=== PATIENT | female | born 1950 | race Caucasian/White ===

== ENCOUNTER 2017-06-04 13:13 | Emergency (ER) | payer OTHER ==
[2017-06-04 13:19] VITALS: BP 153/92; PULSE 85; TEMP 98.8; BMI 20.2
--- NOTE | 2017-06-04 14:53 | PDOC ---
History of Present Illness - General Chief Complaint: Injury Stated Complaint: FALL/ RT ANKLE PAIN Time Seen by Provider: 06/04/17 13:59 History Source: Patient Exam Limitations: No Limitations - History of Present Illness Initial Comments: 06/04/17 14:47 This is a 66yo woman with PMH hypothyroidism who presents today with right foot and ankle pain s/p slipp on stairs. She states she was walking down a flight of stairs when she missed the last 2 steps landing on the floor and sustaining a rolled ankle. She denies head trauma, LOC, fevers, chills, SOB, chest pain, abdominal pain, nausea or vomiting. Occurred: reports: just prior to arrival Severity: Yes: mild Past History - Past Medical History Allergies/Adverse Reactions: Allergies Allergy/AdvReac Type Severity Reaction Status Date / Time Penicillins Allergy Verified 06/04/17 13:19 Home Medications: Ambulatory Orders NK [No Known Home Medication] 06/04/17 COPD: No Other medical history: OSTEOPEROSIS - Suicide/Smoking/Psychosocial Hx Smoking History: Never smoked Information on smoking cessation initiated: No Hx Alcohol Use: No Drug/Substance Use Hx: No Review of Systems - Review of Systems Able to Perform ROS?: Yes Is the patient limited Occitan proficient: No Constitutional: No: Symptoms Reported HEENTM: No: Symptoms Reported Respiratory: No: Symptoms reported Cardiac (ROS): No: Symptoms Reported ABD/GI: No: Symptoms Reported : No: Symptoms Reported Musculoskeletal: Yes: See HPI Integumentary: No: Symptoms Reported Neurological: No: Symptoms reported *Physical Exam - Vital Signs Last Vital Signs Temp Pulse Resp BP Pulse Ox 98.8 F 85 16 153/92 98 06/04/17 13:17 06/04/17 13:17 06/04/17 13:17 06/04/17 13:17 06/04/17 13:17 - Physical Exam General Appearance: Yes: Appropriately Dressed. No: Apparent Distress HEENT: positive: Normal ENT Inspection Neck: positive: Trachea midline Respiratory/Chest: positive: Lungs Clear. negative: Respiratory Distress Cardiovascular: positive: Regular Rhythm, Regular Rate Vascular Pulses: Dorsalis-Pedis (R): 2+, Doralis-Pedis (L): 2+ Gastrointestinal/Abdominal: positive: Normal Bowel Sounds, Soft. negative: Tender Musculoskeletal: positive: Normal Inspection Extremity: positive: Other (hematoma noted to lateral dorsum of right foot.) Integumentary: positive: Normal Color Neurologic: positive: verification specialist II-XII NML intact, Fully Oriented, Alert Medical Decision Making - Medical Decision Making 06/04/17 14:50 This is a 66yo woman with PMH hypothyroidism who presents today with right foot and ankle pain s/p slipp on stairs. She states she was walking down a flight of stairs when she missed the last 2 steps landing on the floor and sustaining a rolled ankle. She denies head trauma, LOC, fevers, chills, SOB, chest pain, abdominal pain, nausea or vomiting. Swelling present to lateral dorsum of right foot. No bony tenderness to Navicular, base of 5th metatarsal or malleolus. Patient is able to bear weight. Diagnosis- ankle sprain I will get an xray of right foot and ankle. Patient does not want pain medication at this time. 06/04/17 14:57 Right ankle and right foot x-ray. INDICATION: Injury. TECHNIQUE: AP, lateral and oblique views of the right ankle and right foot. COMPARISON: None. FINDINGS : There is no evidence of acute fracture or dislocation in the right ankle or right foot. Ankle mortise is symmetric. Talar dome is grossly intact. Alignment is satisfactory. There are postsurgical changes with screw in the right first metatarsal head. The second proximal phalanx is short, possibly postsurgical change. There are prominent soft tissues overlying the lateral malleolus, most likely attributed to swelling/edema. Osseous mineralization is within normal. IMPRESSION: No evidence of acute fracture or dislocation in the right ankle or right foot. Prominent soft tissue swelling/edema overlying the lateral malleolus. Reported By: Sumi Guadalupe DO 06/04/17 1421 *DC/Admit/Observation/Transfer Diagnosis at time of Disposition: Ankle injury Qualifiers: Encounter type: initial encounter Laterality: right Qualified Code(s): S99.911A - Unspecified injury of right ankle, initial encounter - Discharge Dispostion Disposition: HOME Condition at time of disposition: Stable Admit: No - Referrals Referrals: Matt Trevino MD [Staff Physician] - - Patient Instructions Additional Instructions: Keep foot elevated to the level of the heart. Apply ice for 20 minutes then remove ice for at least 20 minutes before reapplying ice. Use JULIANO wrap to ankle to control pain and swelling. Call Dr. Trevino if symptoms do not resolve within 1 week. Take Motrin for pain. Follow poising inspector's instructions for dosage. Return to ER for numbness or tingling to ankle or foot, discoloration of toes, or any other concerns. - Post Discharge Activity
== END 2017-06-04 15:03 | disposition home or self-care (01) ==
LOC: JERFT 13:13
DX: S99.911A Unspecified injury of right ankle, initial encounter (principal); W10.9XXA Fall (on) (from) unspecified stairs and steps, initial encounter; Y93.89 Activity, other specified; Y92.9 Unspecified place or not applicable
CPT/HCPCS: 73610-TC-RT; 73630-TC-RT; 99281-25